=== PATIENT | male | born 1955 | race Two or more races ===

== ENCOUNTER 2025-09-08 21:45 | Inpatient (IN) | payer MEDICARE, MEDICAID, SELFPAY ==
[2025-09-08 21:53] VITALS: BP 119/69; PULSE 85; RESP 18; RESP 19; TEMP 37.7; O2SAT 88; BMI 28.8
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
--- NOTE | 2025-09-08 22:17 | EKG_ITS ---
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
[2025-09-08 22:20] VITALS: BP 124/66; PULSE 88; RESP 20; TEMP 38.5; O2SAT 98
[2025-09-08 22:31] LABS: Lactate (Lactic Acid) 2.8 mMol/L (0.4-2.0)
[2025-09-08 22:33] LABS: Basophils # (Auto) 0.0 Thou/mm3 (0.0-0.2); Basophils % (Auto) 0 % (0-2.5); Eosinophils # (Auto) 0.0 Thou/mm3 (0.0-0.5); Eosinophils % (Auto) 0 % (0-10); Hematocrit 29.2 % (41.0-53.0); Hemoglobin 9.8 g/dL (13.5-16.0); Immature Granulocytes Auto 0.08 Thou/mm3 (0.00-0.00); Lymphocytes # (Auto) 1.4 Thou/mm3 (1.0-4.8); Lymphocytes % (Auto) 9 % (10-50); Mean Corpuscular HGB Conc 33.6 g/dl (31.0-37.0); Mean Corpuscular Hemoglobin 31.4 pg (25.0-35.0); Mean Corpuscular Volume 94 fL (80-100); Monocytes # (Auto) 0.8 Thou/mm3 (0.0-0.8); Monocytes % (Auto) 5 % (0-12); Neutrophils # (Auto) 13.0 Thou/mm3 (1.8-7.7); Neutrophils % (Auto) 85 % (37-80); Nucleated Red Blood Cell # 0.00 Thou/mm3 (0.00-0.00); Nucleated Red Blood Cell % 0 /100 WBC (0); Platelet Count 106 Thou/mm3 (140-440); RDW Standard Deviation 60.9 fL (35.1-43.9); Red Blood Count 3.12 Miln/mm3 (4.50-5.90); White Blood Count 15.3 Thou/mm3 (3.8-10.6)
[2025-09-08 22:36] LABS: Collection Type, Urine Clean Catch
[2025-09-08] MEDS: PIPER/TAZO 3.375 GM PREMIX 3.375 GM/50 ML BAG IV (22:43)
[2025-09-08] MEDS: SODIUM CHLORIDE 0.9% 1000 ML 2,052 ML 2052 ML IV (22:44)
[2025-09-08 22:47] LABS: Amorphous Crystals,Urine Present (Absent); Bacteria,Urine 4+; Bilirubin,Urine Negative (Negative); Blood,Urine 3+ (Negative); Budding Yeast,Urine Present; Color,Urine Yellow (Lt Yel-Yel); Glucose, Urine Negative (Negative); Hyaline Casts,Urine 1 /hpf (0-1); Ketones,Urine Negative (Negative); Leukocyte Esterase,Urine Positive (Negative); Nitrite,Urine Negative (Negative); PH,Urine 5.5 (5.0-7.0); Protein,Urine Trace (Neg - Trace); RBC,Urine 67 /hpf (0-3); Specific Gravity,Urine 1.017 (1.001-1.035); Squamous Epithelial Cell,Urine 2 /hpf (0-5); Urobilinogen,Urine 3.0 mg/dL (0.0-1.0); WBC,Urine 554 /hpf (0-5)
[2025-09-08 22:48] LABS: Clarity,Urine Turbid (Clear/Hazy); Culture Indicated,Urine Yes
[2025-09-08 22:50] LABS: INR 1.2 (0.9-1.3); Partial Thromboplastin Time 30.2 Seconds (22.0-36.0); Prothrombin Time 12.7 Seconds (9.0-12.2)
[2025-09-08 22:51] VITALS: PULSE 77; PULSE 78; RESP 16
[2025-09-08 22:53] LABS: B-Type Natriuretic Peptide 89 pg/mL (0-100)
[2025-09-08] MEDS: ACETAMINOPHEN IVPB 1,000 MG/100 ML VIAL 250 MG IV (22:55)
[2025-09-08 23:11] LABS: Alanine Aminotransferase 41 U/L (10-49); Albumin, Serum 3.0 gm/dL (3.4-4.8); Albumin/Globulin Ratio 0.6 (1.2-2.2); Alkaline Phosphatase 170 U/L (46-116); Anion Gap 9 (7-16); Aspartate Amino Transferase 83 U/L (0-34); BUN/Creatinine Ratio 35 Ratio (12-20); Bilirubin,Total 1.4 mg/dL (0.3-1.2); Blood Urea Nitrogen 42 mg/dL (9-23); Calcium 9.0 mg/dL (8.3-10.6); Calcium (Corrected) 9.8 mg/dL (8.5-10.1); Carbon Dioxide 33.0 mMol/L (20.0-31.0); Chloride 98 mMol/L (98-107); Creatinine (Component) 1.2 mg/dL (0.6-1.3); Estimated Creatinine Clearance 60.3 mL/min (>60); Globulin 4.7 gm/dL (2.3-3.5); Glucose 296 mg/dL (74-106); Magnesium 1.4 mg/dL (1.6-2.6); Osmolality,Calculated 300 (275-295); Phosphorous 2.9 mg/dL (2.4-5.1); Potassium 4.0 mMol/L (3.4-5.1); Procalcitonin 4.05 ng/ml (0.0-0.49); Sodium 140 mMol/L (136-145); Total Protein 7.7 gm/dL (5.7-8.2); Troponin I < 0.020 ng/mL (0.0-0.045); eGFR > 60 See Note
[2025-09-08 23:22] LABS: LDH (Lactate Dehydrogenase) 349 U/L (120-246); Lipase 22 U/L (12-53)
[2025-09-09] VITALS (11 sets, daily range): BP systolic 91–131; BP diastolic 43–67; PULSE 60–90; RESP 12–98; TEMP 36.2–36.8; O2SAT 92–100; BMI 28.8
--- NOTE | 2025-09-09 00:28 | XR_ITS ---
EXAMINATION: AP chest single view TECHNIQUE: AP portable semiupright chest single view Date and time: September 09, 2025, 0052 hours, comparison October 07, 2024 INDICATIONS: Shortness of breath today. FINDINGS: Mild heart failure Mild enlargement cardiac contour. Prominent vascular congestion with early septal edema. Cardiac needs satisfactory position IMPRESSION: Early CHF
[2025-09-09] MEDS: ACETAMINOPHEN IVPB 1,000 MG/100 ML VIAL 250 MG IV ×3 (00:43→11:40)
[2025-09-09] MEDS: Magnesium Sulfate 2 GM Ivpb 2 GM/50 ML BAG IV (01:19)
[2025-09-09 01:28] LABS: Reflex Lactate? Y
[2025-09-09 01:40] LABS: Lactic Acid, 3 HR 1.9 mMol/L (0.4-2.0)
--- NOTE | 2025-09-09 01:48 | XR_ITS ---
Examination: CT brain head without contrast. 2-D sagittal coronal reconstructions Date and time of exam: September 09, 2025, 0228 hours INDICATIONS: Onset altered mental status today CTDI: vol (mGy): 50.50 DLP: (mGycm): 1104 Technique: Multiple CT axial sections of the brain have been obtained, 5 mm slice thickness. Contrast has not been administered. 2-D sagittal, coronal reconstructions have been obtained Low dose protocols were performed. One or more of the following dose reduction techniques were used; automated exposure control, adjustment of the mA and/or KV according to patient size, use of iterative reconstruction technique. Findings: No significant ventricular enlargement. Intra-axial or extra-axial hemorrhage density is not seen. No mass effect or midline shift Basal cisterns are not remarkable. Fourth ventricle is midline. Cranial vault intact. Incidental expansile lesion in the left inferior nasal turbinate, coronal image 16, measuring 16 x 21 mm Impression: Negative for acute hemorrhage, mass effect or midline shift Likely benign expansile lesion in the left inferior nasal turbinate, recommend ENT consultation
--- NOTE | 2025-09-09 01:49 | XR_ITS ---
Examination: CT chest, without intravenous contrast. CT abdomen, without intravenous contrast. CT pelvis, without intravenous contrast. 2-D sagittal and coronal reconstructions. 3-D reconstructions. Date and time of exam: September 09, 2025, 0230 hours INDICATIONS: Fever, sepsis unknown origin today CTDI vol (mgy) 12.01 DLP (MGycm) 1032 Technique: Multiple CT images, 3.0 mm slice thickness, obtained chest, abdomen, pelvis, with the high-resolution 64 slice scanner.. Sagittal and coronal 2-D reconstructions are obtained. 3-D reconstructions Low dose protocols were performed. One or more of the following dose reduction techniques were used; automated exposure control, adjustment of the mA and/or KV according to patient size, use of iterative reconstruction technique. Findings: No thoracic aortic aneurysmal dilatation Pulmonary artery segments are not enlarged. Pericardial effusion measuring up to 11 mm Prominent vascular congestion Bibasilar pneumonia with small pleural effusions Cirrhosis, liver irregular in contour 16 mm upper right lobe liver lesion No biliary tract dilatation Splenomegaly Portosystemic collateral vessels medial to the spleen Perigastric varices No pancreatic mass. No hydronephrosis Aorta is normal in size Air distended stomach Trace ascites Normal appendix Abundant stool in the rectosigmoid Urinary bladder contracted around a Castellanos catheter air density in the urinary bladder IMPRESSION: Mild heart failure Bibasilar pneumonia Cirrhosis Right lobe liver 16 mm indeterminate lesion Significant splenomegaly Trace ascites Normal appendix Abundant stool in the rectosigmoid Cystitis pattern
--- NOTE | 2025-09-09 03:12 | PRELIM_ITS ---
CT scan of the head without intravenous contrast (axial sections with sagittal and coronal reformats) September 09, 2025 0228 hours Clinical history: Ams Reference is made to the prior report dated August. Findings: There is no evidence of intracranial hemorrhage, mass effect or midline shift. There are mild periventricular white matter hypodensities, likely representing chronic small vessel ischemia. There is mild volume loss. The calvarium is unremarkable. There is expansile lesion in the left inferior turbinate measuring 2 x 1.5 cm.The mastoid air cells and the other visualized paranasal sinuses are clear. Impression: No evidence of intracranial hemorrhage, mass effect or midline shift. Periventricular chronic small vessel ischemia and volume loss. Expansile lesion in the left inferior turbinate likely neoplasm of chondroid origin or papilloma or hemangioma. Recommend further workup and followup. Report Electronically Signed By: Brant Graham 09/09/2025 3:12:13 AM [EST]
--- NOTE | 2025-09-09 03:19 | PRELIM_ITS ---
CT scan of the chest, abdomen and pelvis without intravenous contrast (axial sections with sagittal and coronal reformats) September 09, 2025 0230 hours Clinical History: Fever Comparison: None available at the time of this report. Findings: No pneumothorax. Moderate right pleural effusion. Small left pleural effusion. Bilateral lower lobes consolidations. The aorta is within normal limits for age on this noncontrast study. No evidence of mediastinal mass or lymphadenopathy. There is a small pericardial effusion. The gallbladder, pancreas, adrenals and kidneys are unremarkable on this noncontrast study. Irregular liver margins. No evidence of bowel obstruction. Splenomegaly mechanical diameter 17.2 cm. No evidence of appendicitis. The urinary bladder is nondistended, limited evaluation, air within the urinary bladder, Castellanos catheter in place. There is no free air. Small ascites. Indeterminate hypodense lesion at the liver dome measures 1.8 cm. Degenerative changes of the imaged portions of the spine. Chronic multilevel disc disease. No acute fractures. Vascular calcifications. Dilated left atrium. Cardiac pacemaker noted. Moderate fecal loading. Impression: 1. Bilateral pleural effusions. Bilateral lower lobes consolidation suspicious for pneumonia. 2. Cirrhosis associated with ascites and splenomegaly. 3. Air within the urinary bladder, possibly postprocedural possibly due to cystitis. 4. Moderate fecal loading. 5. Small pericardial effusion, consider pericarditis in the differential diagnosis. 6. Dilated left atrium. 7. Indeterminant liver lesion, consider follow-upd to exclude hepatocellular carcinoma. Report Electronically Signed By: Eric Ya 09/09/2025 3:19:15 AM [EST]
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
[2025-09-09] MEDS: HEPARIN SOD INJ 5000 UNIT/ML VIAL SC ×3 (05:40→21:00)
[2025-09-09] MEDS: VANCOMYCIN/NS 1 GM IVPB 200 ML IV (05:43)
[2025-09-09 05:53] LABS: Basophils # (Auto) 0.0 Thou/mm3 (0.0-0.2); Basophils % (Auto) 0 % (0-2.5); Eosinophils # (Auto) 0.0 Thou/mm3 (0.0-0.5); Eosinophils % (Auto) 0 % (0-10); Hematocrit 28.2 % (41.0-53.0); Hemoglobin 9.0 g/dL (13.5-16.0); Immature Granulocytes Auto 0.08 Thou/mm3 (0.00-0.00); Lymphocytes # (Auto) 2.4 Thou/mm3 (1.0-4.8); Lymphocytes % (Auto) 15 % (10-50); Mean Corpuscular HGB Conc 31.9 g/dl (31.0-37.0); Mean Corpuscular Hemoglobin 30.8 pg (25.0-35.0); Mean Corpuscular Volume 97 fL (80-100); Monocytes # (Auto) 1.0 Thou/mm3 (0.0-0.8); Monocytes % (Auto) 6 % (0-12); Neutrophils # (Auto) 12.9 Thou/mm3 (1.8-7.7); Neutrophils % (Auto) 79 % (37-80); Nucleated Red Blood Cell # 0.00 Thou/mm3 (0.00-0.00); Nucleated Red Blood Cell % 0 /100 WBC (0); Platelet Count 81 Thou/mm3 (140-440); RDW Standard Deviation 65.3 fL (35.1-43.9); Red Blood Count 2.92 Miln/mm3 (4.50-5.90); White Blood Count 16.4 Thou/mm3 (3.8-10.6)
[2025-09-09 06:29] LABS: Alanine Aminotransferase 37 U/L (10-49); Albumin, Serum 2.9 gm/dL (3.4-4.8); Albumin/Globulin Ratio 0.7 (1.2-2.2); Alkaline Phosphatase 158 U/L (46-116); Anion Gap 8 (7-16); Aspartate Amino Transferase 67 U/L (0-34); BUN/Creatinine Ratio 36 Ratio (12-20); Bilirubin,Total 1.6 mg/dL (0.3-1.2); Blood Urea Nitrogen 43 mg/dL (9-23); Calcium 8.5 mg/dL (8.3-10.6); Calcium (Corrected) 9.4 mg/dL (8.5-10.1); Carbon Dioxide 34.4 mMol/L (20.0-31.0); Chloride 102 mMol/L (98-107); Creatinine (Component) 1.2 mg/dL (0.6-1.3); Estimated Creatinine Clearance 60.3 mL/min (>60); Globulin 4.4 gm/dL (2.3-3.5); Glucose 255 mg/dL (74-106); Magnesium 1.8 mg/dL (1.6-2.6); Osmolality,Calculated 306 (275-295); Potassium 3.9 mMol/L (3.4-5.1); Sodium 144 mMol/L (136-145); Total Protein 7.3 gm/dL (5.7-8.2); eGFR > 60 See Note
[2025-09-09] MEDS: RINGERS LACTATED 1000 ML 1,000 ML 125 ML IV (06:54)
[2025-09-09] MEDS: PIPER/TAZO 3.375 GM PREMIX 3.375 GM/50 ML BAG IV ×3 (07:17→21:01)
[2025-09-09] MEDS: RINGERS LACTATED 1000 ML 1,000 ML IV (07:17)
--- NOTE | 2025-09-09 07:28 | PC.NURSE ---
REPORT GIVEN TO AMANDA NIXON RN
[2025-09-09 07:43] LABS: Glucose Estimated Average 105 mg/dL (80-131); Hemoglobin A1C 5.3 % Hgb (4.8-6.0)
[2025-09-09 07:47] LABS: Ammonia 53 uMol/L (11-32)
[2025-09-09] MEDS: INSULIN LISPRO (AdmeLOG) 1 UNIT/0.01 ML UNIT SC ×4 (08:31→20:58)
[2025-09-09] MEDS: INSULIN LISPRO (AdmeLOG) 1 UNIT/0.01 ML UNIT 5 UNIT SC (08:32)
[2025-09-09] MEDS: CLOPIDOGREL BISULFATE 75 MG TABLET PO (08:34)
[2025-09-09] MEDS: FAMOTIDINE 20 MG TABLET PO (08:34)
[2025-09-09] MEDS: ASPIRIN EC 81 MG TABEC PO (08:34)
[2025-09-09] MEDS: SENNA/DOCUSATE SOD 1 TAB TABLET PO (08:34)
--- NOTE | 2025-09-09 09:25 | PC.SS ---
Patient Josias Red is a 70 Year old male admitted for sepsis 2/, UTI. SS met with patient at bedside to discuss discharge plan and verify demographic information. Patient is currently on 2L of O2 Nasal cannula. Patient is a [place] [facility] resident at [facility]. Patient is bed bound. Utilizes oxygen as needed. Patient makes his own decisions. If unable to make decisions, patients emergency contact is his sister, Evie Moody or . Patient will return back to [facility] when medically cleared, patient can return to their facility. Next of kin: sister, Evie Moody or D/c plan: return to [facility]
--- NOTE | 2025-09-09 10:14 | PC.NURSE ---
Received a call from [facility] at 1015 checking the status of patient. Spoke with nurse Watts.
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
[2025-09-09] MEDS: ATORVASTATIN CALCIUM 20 MG TABLET 40 MG PO (20:58)
[2025-09-10] VITALS (10 sets, daily range): BP systolic 113–146; BP diastolic 58–83; PULSE 60–89; RESP 16–95; TEMP 36.3–36.8; O2SAT 93–98
[2025-09-10] MEDS: MG HYD/AL HYD/SIME (Maalox Reg) SUSP 30 ML UDC PO (00:55)
[2025-09-10] MEDS: MELATONIN 3 MG TABLET PO (02:41)
[2025-09-10] MEDS: PIPER/TAZO 3.375 GM PREMIX 3.375 GM/50 ML BAG IV ×3 (05:29→21:13)
[2025-09-10 05:40] LABS: Basophils # (Auto) 0.0 Thou/mm3 (0.0-0.2); Basophils % (Auto) 0 % (0-2.5); Eosinophils # (Auto) 0.1 Thou/mm3 (0.0-0.5); Eosinophils % (Auto) 1 % (0-10); Hematocrit 27.5 % (41.0-53.0); Immature Granulocytes Auto 0.04 Thou/mm3 (0.00-0.00); Lymphocytes # (Auto) 2.0 Thou/mm3 (1.0-4.8); Lymphocytes % (Auto) 26 % (10-50); Mean Corpuscular HGB Conc 32.0 g/dl (31.0-37.0); Mean Corpuscular Hemoglobin 30.6 pg (25.0-35.0); Mean Corpuscular Volume 96 fL (80-100); Monocytes # (Auto) 0.4 Thou/mm3 (0.0-0.8); Monocytes % (Auto) 5 % (0-12); Neutrophils # (Auto) 5.4 Thou/mm3 (1.8-7.7); Neutrophils % (Auto) 67 % (37-80); Nucleated Red Blood Cell # 0.00 Thou/mm3 (0.00-0.00); Nucleated Red Blood Cell % 0 /100 WBC (0); Platelet Count 92 Thou/mm3 (140-440); RDW Standard Deviation 63.8 fL (35.1-43.9); Red Blood Count 2.88 Miln/mm3 (4.50-5.90); White Blood Count 8.0 Thou/mm3 (3.8-10.6)
[2025-09-10 05:41] LABS: Hemoglobin 8.8 g/dL (13.5-16.0)
[2025-09-10 06:00] LABS: Alanine Aminotransferase 28 U/L (10-49); Albumin, Serum 2.6 gm/dL (3.4-4.8); Albumin/Globulin Ratio 0.7 (1.2-2.2); Alkaline Phosphatase 106 U/L (46-116); Anion Gap 10 (7-16); Aspartate Amino Transferase 49 U/L (0-34); BUN/Creatinine Ratio 41 Ratio (12-20); Bilirubin,Total 1.2 mg/dL (0.3-1.2); Blood Urea Nitrogen 45 mg/dL (9-23); Calcium 7.9 mg/dL (8.3-10.6); Calcium (Corrected) 9.0 mg/dL (8.5-10.1); Carbon Dioxide 30.4 mMol/L (20.0-31.0); Chloride 102 mMol/L (98-107); Creatinine (Component) 1.1 mg/dL (0.6-1.3); Estimated Creatinine Clearance 65.8 mL/min (>60); Globulin 4.0 gm/dL (2.3-3.5); Glucose 129 mg/dL (74-106); Magnesium 2.0 mg/dL (1.6-2.6); Osmolality,Calculated 296 (275-295); Phosphorous 2.9 mg/dL (2.4-5.1); Potassium 3.8 mMol/L (3.4-5.1); Sodium 142 mMol/L (136-145); Total Protein 6.6 gm/dL (5.7-8.2); eGFR > 60 See Note
[2025-09-10] MEDS: SENNA/DOCUSATE SOD 1 TAB TABLET PO ×2 (08:52→12:09)
[2025-09-10] MEDS: ASPIRIN EC 81 MG TABEC PO (08:52)
[2025-09-10] MEDS: FAMOTIDINE 20 MG TABLET PO (08:52)
[2025-09-10] MEDS: CLOPIDOGREL BISULFATE 75 MG TABLET PO (08:52)
[2025-09-10] MEDS: VANCOMYCIN/WATER 1250 MG IVPB 250 ML 120 MG IV (09:33)
[2025-09-10] MEDS: POTASSIUM CHLORIDE 10% 20 MEQ/15 ML UDC PO (09:34)
[2025-09-10] MEDS: INSULIN LISPRO (AdmeLOG) 1 UNIT/0.01 ML UNIT SC ×3 (11:16→21:11)
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
[2025-09-10] MEDS: HEPARIN SOD INJ 5000 UNIT/ML VIAL SC ×2 (13:09→21:11)
[2025-09-10] MEDS: ATORVASTATIN CALCIUM 20 MG TABLET 40 MG PO (21:13)
[2025-09-11] VITALS (8 sets, daily range): BP systolic 132–149; BP diastolic 69–79; PULSE 61–74; RESP 16–99; TEMP 36.3–36.7; O2SAT 96–99
[2025-09-11] MEDS: HEPARIN SOD INJ 5000 UNIT/ML VIAL SC (05:21)
[2025-09-11] MEDS: PIPER/TAZO 3.375 GM PREMIX 3.375 GM/50 ML BAG IV (05:21)
[2025-09-11 05:55] LABS: Basophils # (Auto) 0.0 Thou/mm3 (0.0-0.2); Basophils % (Auto) 0 % (0-2.5); Eosinophils # (Auto) 0.1 Thou/mm3 (0.0-0.5); Eosinophils % (Auto) 1 % (0-10); Hematocrit 27.7 % (41.0-53.0); Hemoglobin 9.0 g/dL (13.5-16.0); Immature Granulocytes Auto 0.02 Thou/mm3 (0.00-0.00); Lymphocytes # (Auto) 1.7 Thou/mm3 (1.0-4.8); Lymphocytes % (Auto) 29 % (10-50); Mean Corpuscular HGB Conc 32.5 g/dl (31.0-37.0); Mean Corpuscular Hemoglobin 30.7 pg (25.0-35.0); Mean Corpuscular Volume 95 fL (80-100); Monocytes # (Auto) 0.3 Thou/mm3 (0.0-0.8); Monocytes % (Auto) 6 % (0-12); Neutrophils # (Auto) 3.9 Thou/mm3 (1.8-7.7); Neutrophils % (Auto) 64 % (37-80); Nucleated Red Blood Cell # 0.00 Thou/mm3 (0.00-0.00); Nucleated Red Blood Cell % 0 /100 WBC (0); Platelet Count 80 Thou/mm3 (140-440); RDW Standard Deviation 63.4 fL (35.1-43.9); Red Blood Count 2.93 Miln/mm3 (4.50-5.90); White Blood Count 6.0 Thou/mm3 (3.8-10.6)
[2025-09-11 06:26] LABS: Alanine Aminotransferase 30 U/L (10-49); Albumin, Serum 2.7 gm/dL (3.4-4.8); Albumin/Globulin Ratio 0.6 (1.2-2.2); Alkaline Phosphatase 99 U/L (46-116); Anion Gap 11 (7-16); Aspartate Amino Transferase 66 U/L (0-34); BUN/Creatinine Ratio 35 Ratio (12-20); Bilirubin,Total 1.3 mg/dL (0.3-1.2); Blood Urea Nitrogen 35 mg/dL (9-23); Calcium 8.0 mg/dL (8.3-10.6); Calcium (Corrected) 9.0 mg/dL (8.5-10.1); Carbon Dioxide 29.5 mMol/L (20.0-31.0); Chloride 103 mMol/L (98-107); Creatinine (Component) 1.0 mg/dL (0.6-1.3); Estimated Creatinine Clearance 72.4 mL/min (>60); Globulin 4.2 gm/dL (2.3-3.5); Glucose 151 mg/dL (74-106); Magnesium 2.2 mg/dL (1.6-2.6); Osmolality,Calculated 295 (275-295); Phosphorous 2.9 mg/dL (2.4-5.1); Potassium 3.8 mMol/L (3.4-5.1); Sodium 143 mMol/L (136-145); Total Protein 6.9 gm/dL (5.7-8.2); eGFR > 60 See Note
[2025-09-11] MEDS: CLOPIDOGREL BISULFATE 75 MG TABLET PO (08:33)
[2025-09-11] MEDS: ASPIRIN EC 81 MG TABEC PO (08:34)
[2025-09-11] MEDS: FAMOTIDINE 20 MG TABLET PO (08:34)
[2025-09-11] MEDS: SENNA/DOCUSATE SOD 1 TAB TABLET PO (08:34)
[2025-09-11] MEDS: INSULIN LISPRO (AdmeLOG) 1 UNIT/0.01 ML UNIT SC (11:17)
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
--- NOTE | 2025-09-11 13:25 | PC.SS ---
Transport set up via [employer] for 1400. ABRIL Wooten made aware. Iesha from [facility] is aware lol
--- NOTE | 2025-09-11 13:27 | PC.NURSE ---
Per Dr. Sena freitas catheter to remain in place at discharge to SNF.
== END 2025-09-11 13:55 | disposition skilled nursing facility (03) | DRG 871 ==
LOC: SERX 09-09 00:56 → SERHOLD 09-09 04:53 → S3NX 09-09 07:57
PROVIDERS: Admitting Provider Internal Medicine; Emergency Provider Emergency Medicine; Visit Provider Student in an Organized Health Care Education/Training Program
DX: A41.51 Sepsis due to Escherichia coli [E. coli] (principal); G82.50 Quadriplegia, unspecified; J18.9 Pneumonia, unspecified organism; J96.01 Acute respiratory failure with hypoxia; J96.02 Acute respiratory failure with hypercapnia; N39.0 Urinary tract infection, site not specified; Z16.12 Extended spectrum beta lactamase (ESBL) resistance; E11.9 Type 2 diabetes mellitus without complications; I10 Essential (primary) hypertension; K21.9 Gastro-esophageal reflux disease without esophagitis; N31.9 Neuromuscular dysfunction of bladder, unspecified; I25.10 Atherosclerotic heart disease of native coronary artery without angina pectoris; E78.5 Hyperlipidemia, unspecified; D69.6 Thrombocytopenia, unspecified; D64.9 Anemia, unspecified; E83.42 Hypomagnesemia; K76.9 Liver disease, unspecified; K12.1 Other forms of stomatitis; Z95.0 Presence of cardiac pacemaker; K59.00 Constipation, unspecified; Z79.02 Long term (current) use of antithrombotics/antiplatelets; Z79.82 Long term (current) use of aspirin; Z86.73 Personal history of transient ischemic attack (TIA), and cerebral infarction without residual deficits; Z79.899 Other long term (current) drug therapy
CPT/HCPCS: 36415; 70450; 71045; 71250; 74176; 80053; 81001; 82140; 83036; 83605; 83615; 83690; 83735; 83880; 84100; 84145; 84484; 85025; 85610; 85730; 87040; 87077; 87081; 87086; 87186; 87811; 92610; 93005; 93225; 96361; 96365; 96366; 96372; 99285; A4314; J0131; J1644; J1815; J2543; J3372; J3373; J3475; J7030; J7120; A9270